=== PATIENT | female | born 1955 | race Caucasian/White ===

== ENCOUNTER 2019-07-15 14:05 | Emergency (ER) | payer MEDICARE ==
[~2019-07-15] VITALS: Ht 162.6 cm; Wt 68.0 kg
[~2019-07-15 14:05] MED LIST: Cyclobenzaprine5 MG PO; DICL25ER PO; GABA100; HYDACE5 PO; IBUP600 PO; Keflex500 MG PO; NAPR220 PO; NAPR500 PO; OXYACE5T PO; Zofran Odt8 MG SL
== END 2019-07-15 16:40 | disposition left against medical advice (07) ==
LOC: ER 14:05
DX: S40.022A Contusion of left upper arm, initial encounter (principal); S40.021A Contusion of right upper arm, initial encounter; R07.9 Chest pain, unspecified; M54.5 Low back pain; M25.531 Pain in right wrist; Y04.8XXA Assault by other bodily force, initial encounter; Z79.899 Other long term (current) drug therapy; F17.210 Nicotine dependence, cigarettes, uncomplicated
CPT/HCPCS: 71046; 73110; 99284-25

== ENCOUNTER 2019-07-18 23:21 | Emergency (ER) | payer MEDICARE ==
[~2019-07-18] VITALS: Ht 162.6 cm; Wt 68.0 kg
[2019-07-19 02:23] LABS: BASOPHILS ABSOLUTE AUTO 0.04 K/mm3 (0.00-0.23); BASOPHILS PERCENT AUTO 1 % (0-2); EOSINOPHILS ABSOLUTE AUTO 0.25 K/mm3 (0.00-0.68); EOSINOPHILS PERCENT AUTO 4 % (0-6); Hematocrit 37.8 % (33.0-51.0); Hemoglobin 12.2 g/dL (11.5-16.0); IMMATURE GRAN ABSOLUTE AUTO 0.02 K/mm3 (0.00-0.10); IMMATURE GRAN PERCENT AUTO 0 % (0-1); LYMPHOCYTES ABSOLUTE AUTO 2.12 K/mm3 (0.84-5.20); LYMPHOCYTES PERCENT AUTO 32 % (21-46); MONOCYTES ABSOLUTE AUTO 0.74 K/mm3 (0.16-1.47); MONOCYTES PERCENT AUTO 11 % (4-13); Mean Corpuscular HGB 27.7 pg (26.0-34.0); Mean Corpuscular HGB Conc 32.3 g/dL (31.5-36.5); Mean Corpuscular Volume 86 fL (80-100); Mean Platelet Volume 9.4 fL (9.1-12.4); NEUTROPHILS PERCENT AUTO 53 % (41-73); Platelet Count 190 K/mm3 (150-400); RDW Coefficient Variation 16.3 % (11.7-14.2); RDW Standard Deviation 51.1 fL (35.1-46.3); Red Blood Cell Count 4.41 M/mm3 (3.80-5.20); White Blood Cell Count 6.67 K/mm3 (4.00-11.30)
[2019-07-19] MEDS ORDERED: Roxicodone5 MG PO (02:35)
[2019-07-19 02:41] LABS: Alanine Aminotransfer (ALT/SGP 30 U/L (12-78); Albumin, Blood 3.4 g/dL (3.4-5.0); Albumin/Globulin Ratio 0.8 (0.8-1.8); Alk Phos 85 U/L (50-136); Anion Gap 6 mmol/L (6-16); Aspartate Aminotrans (AST/SGOT 26 U/L (12-37); Bilirubin, Total 0.4 mg/dL (0.1-1.0); Blood Urea Nitrogen 13 mg/dL (8-24); Bun/Creatinine Ratio 18.4 (12.0-20.0); CO2, Blood 30 mmol/L (21-32); Calcium, Blood 8.9 mg/dL (8.5-10.1); Chloride, Blood 102 mmol/L (98-108); Creatinine, Blood 0.71 mg/dL (0.40-1.00); Globulin, Blood 4.1 g/dL (2.2-4.0); Glomerular Filtration Rate >60 (60-); Glucose, Blood 90 mg/dL (70-99); Potassium, Blood 4.1 mmol/L (3.5-5.5); Sodium, Blood 138 mmol/L (136-145); Total Protein, Blood 7.5 g/dL (6.4-8.2)
== END 2019-07-19 03:00 | disposition home or self-care (01) ==
LOC: ER 23:21
PROVIDERS: Emergency Medicine
DX: S22.20XA Unspecified fracture of sternum, initial encounter for closed fracture (principal); S22.42XD Multiple fractures of ribs, left side, subsequent encounter for fracture with routine healing; S22.41XD Multiple fractures of ribs, right side, subsequent encounter for fracture with routine healing; F17.210 Nicotine dependence, cigarettes, uncomplicated; Y09 Assault by unspecified means
CPT/HCPCS: 36415; 71250; 80053; 85025; 93005; 93010; 99284-25; A9270

== ENCOUNTER 2019-07-25 22:51 | Emergency (ER) | payer MEDICARE ==
[~2019-07-25] VITALS: Ht 162.6 cm; Wt 68.0 kg
[~2019-07-25 22:51] MED LIST changes: +Roxicodone5 MG PO
[2019-07-26] MEDS ORDERED: Roxicodone5 MG PO (03:49)
== END 2019-07-26 04:00 | disposition home or self-care (01) ==
LOC: ER 22:51
DX: S22.42XA Multiple fractures of ribs, left side, initial encounter for closed fracture (principal); S22.22XA Fracture of body of sternum, initial encounter for closed fracture; F17.210 Nicotine dependence, cigarettes, uncomplicated; X58.XXXA Exposure to other specified factors, initial encounter
CPT/HCPCS: 71250; 93005; 93010; 99284-25; A9270

== ENCOUNTER 2019-07-30 13:46 | Observation (INO) | payer MEDICARE ==
[~2019-07-30] VITALS: Ht 162.6 cm; Wt 68.0 kg
[2019-07-30] MEDS ORDERED: METH10 (17:31)
--- NOTE | 2019-07-30 18:00 | NUR ---
pt transferred to unit from ED via wheelchair. pt a/o x 4, vss. pt oriented to room and call light.
[2019-07-30 18:06] LABS: BASOPHILS ABSOLUTE AUTO 0.04 K/mm3 (0.00-0.23); BASOPHILS PERCENT AUTO 1 % (0-2); EOSINOPHILS ABSOLUTE AUTO 0.27 K/mm3 (0.00-0.68); EOSINOPHILS PERCENT AUTO 5 % (0-6); Hematocrit 44.1 % (33.0-51.0); IMMATURE GRAN ABSOLUTE AUTO 0.02 K/mm3 (0.00-0.10); IMMATURE GRAN PERCENT AUTO 0 % (0-1); LYMPHOCYTES ABSOLUTE AUTO 2.87 K/mm3 (0.84-5.20); LYMPHOCYTES PERCENT AUTO 48 % (21-46); MONOCYTES ABSOLUTE AUTO 0.54 K/mm3 (0.16-1.47); MONOCYTES PERCENT AUTO 9 % (4-13); Mean Corpuscular HGB 27.5 pg (26.0-34.0); Mean Corpuscular HGB Conc 31.7 g/dL (31.5-36.5); Mean Corpuscular Volume 87 fL (80-100); Mean Platelet Volume 9.8 fL (9.1-12.4); NEUTROPHILS ABSOLUTE AUTO 2.27 K/mm3 (1.96-9.15); NEUTROPHILS PERCENT AUTO 38 % (41-73); Platelet Count 274 K/mm3 (150-400); RDW Coefficient Variation 15.9 % (11.7-14.2); RDW Standard Deviation 50.4 fL (35.1-46.3); White Blood Cell Count 6.01 K/mm3 (4.00-11.30)
[2019-07-30 18:20] LABS: International Normalized Ratio 0.95; Prothrombin Time Results 10.1 Sec (9.7-11.5)
[2019-07-30 18:24] LABS: Anion Gap 2 mmol/L (6-16); Blood Urea Nitrogen 14 mg/dL (8-24); Bun/Creatinine Ratio 19.9 (12.0-20.0); CO2, Blood 28 mmol/L (21-32); Calcium, Blood 9.5 mg/dL (8.5-10.1); Chloride, Blood 104 mmol/L (98-108); Glomerular Filtration Rate >60 (60-); Glucose, Blood 75 mg/dL (70-99); Potassium, Blood 4.5 mmol/L (3.5-5.5); Sodium, Blood 134 mmol/L (136-145)
[2019-07-30 18:48] LABS: U Amphetamine Screen DETECTED; U Methadone Screen DETECTED; U Methamphetamine Screen DETECTED; U Opiates Screen DETECTED
[2019-07-30 18:49] LABS: U Barbituate Screen Not Detected; U Benzodiazapine Screen Not Detected; U Buprenorphine Screen Not Detected; U Cannabinoids Screen Not Detected; U Cocaine Screen Not Detected; U Oxycodone Screen Not Detected; U Phencyclidine Screen Not Detected; U Propoxyphene Screen Not Detected
--- NOTE | 2019-07-31 04:48 | NUR ---
SHIFT SUMMARY: PT VERY SLEEPY T/O SHIFT. CONTINUOUS BIOX IN PLACE. VSS. PAIN MANAGED WITH FENTANYL FLOORPERSON. PT SBA TO BATHROOM PRN. VOIDING WELL. MELINA REGULAR DIET.
--- NOTE | 2019-07-31 16:48 | NUR ---
SHIFT SUMMARY NO ACUTE CHANGES THIS SHIFT. PAIN MANAGED WITH FENTANYL LAVENDER FARM WORKER. PT DOES GET DROWSY AT TIMES WITH PAIN MEDICATION, BUT AWAKENS EASILY. CONT BIOX IN PLACE WITH SATS >95%. PT ENCOURAGED TO USE I/S AND PT HAS BEEN DEMONSTRATING PROPER USE. PT HAS BEEN ATTEMPTING TO USE THE FENTANYL LAVENDER FARM WORKER LESS BUT REPORTS SHE IS STILL USING IT ABOUT Q30 MINS TO Q45 MINS. PT HAS BEEN INDEP IN ROOM TO THE BATHROOM. MELINA REG DIET. USING KPAD TO RIBS FOR COMFORT PRN. USES CALL LIGHT APPROPRIATELY.
--- NOTE | 2019-08-01 06:20 | NUR ---
PT HAS BEEN STABLE THIS SHIFT, SLEEPING MOST OF THE TIME. PT INDEP IN ROOM AND TO BATHROOM. VOIDING WELL. CONT MUSIC INTERNSHIP USE. PT HAD PERCOCET PRN X2. ENCOURAGING DEEP BREATHS ABLE. KPAD IN USE TO CHEST AND BACK. IV AT TKE. PO INTAKE ADEQUATE. USES CALL LIGHT APPROPRIATELY NEEDED.
[2019-08-01] MEDS ORDERED: Percocet 5-3251 EACH PO (13:07)
--- NOTE | 2019-08-01 14:23 | NUR ---
DISCHARGE NOTE DISCHARGE EDUCATION GIVEN TO PT BY RN. PRINTED EDUCATION AND RX SENT HOME WITH PT. PT WALKING INDEPENDANTLY, VOIDING, AND EATING WELL. PT REPORTS PAIN CONTROLLED WITH MEDICATION AND NO FURTHER QUESTIONS. PT LEFT HOSPITAL WITH FRIEND TO DRIVE HER HOME. IV D/C'D WNL. NO OTHER IV'S IN PLACE.
== END 2019-08-01 14:24 | disposition home or self-care (01) ==
LOC: ER 13:46 → SURS 13:47
PROVIDERS: Emergency Medicine; Nurse Practitioner Acute Care; ADMIT Surgery
DX: S22.43XA Multiple fractures of ribs, bilateral, initial encounter for closed fracture (principal); S22.20XA Unspecified fracture of sternum, initial encounter for closed fracture; F17.210 Nicotine dependence, cigarettes, uncomplicated; Z79.899 Other long term (current) drug therapy; Z86.19 Personal history of other infectious and parasitic diseases; Z86.59 Personal history of other mental and behavioral disorders; Y08.89XA Assault by other specified means, initial encounter
CPT/HCPCS: 36415; 71046; 80048; 84145; 85025; 85610; 94762; 99285-25; G0378; J3010; J7030; J7050

== ENCOUNTER → 2021-05-14 | Outpatient (CLI) | payer MEDICARE ==
[~2021-05-14] MED LIST changes: +METH10; +Percocet 5-3251 EACH PO
[2021-05-14 19:27] LABS: Source, Urine Clean Catch
[2021-05-14 19:57] LABS: Appearance, Urine Cloudy (Clear); Bilirubin, Urine Neg (Neg); Blood, Urine 2+ (Neg); Color, Urine Yellow (P-Yellow); Glucose Qualitative, Urine Neg (Neg); Ketones, Urine Neg (Neg); Leukocyte Esterase, Urine 3+ (Neg); Nitrite, Urine Neg (Neg); Protein, Urine 2+ (Neg); Specific Gravity, Urine 1.015 (1.003-1.022); Urobilinogen, Urine NORM (Normal)
[2021-05-14 20:03] LABS: Bacteria Many /hpf; Red Blood Cells, Urine 0-2 /hpf (0-2); Squamous Epithelial Cells Not Seen /hpf (Few); White Blood Cells, Urine TNTC /hpf (0-5)
== END | disposition home or self-care (01) ==
LOC: LAB SHORT 16:47 → LAB 16:47
PROVIDERS: Student in an Organized Health Care Education/Training Program
DX: R30.0 Dysuria (principal)
CPT/HCPCS: 81001; 87077; 87086; 87186

== ENCOUNTER → 2022-02-20 | Outpatient (CLI) | payer MEDICARE | END | disposition home or self-care (01) | LOC: LAB SHORT 09:05 | DX: R30.0 Dysuria (principal) | CPT/HCPCS: 87077; 87086; 87186 ==

== ENCOUNTER 2023-04-15 06:14 | Day surgery (SDC) | payer MEDICARE, OTHER ==
[~2023-04-15] VITALS: Ht 160 cm; Wt 91.8 kg
[2023-04-15] MEDS ORDERED: METH40 PO (06:36)
[2023-04-15] MEDS ORDERED: LEVSOD25 PO (06:37)
[2023-04-15] MEDS ORDERED: ROSU10TA PO (06:38)
--- NOTE | 2023-04-15 07:21 | NUR ---
04/15/23 0721 Janeth Tipton TETRACAINE DROP PLACED IN RIGHT EYE AT 0707, PLEDGET PLACED IN RIGHT EYE AT 0708. PT TOLERATED WELL. PT HAS CALL LIGHT IN REACH.
[2023-04-15 08:27] VITALS: BP 157/96
--- NOTE | 2023-04-15 08:41 | NUR ---
04/15/23 0841 JAE FAROOQ IV REMOVED AT 0811. CANULA INTACT, PT TOLERATED PROCEDURE WELL.
== END 2023-04-15 08:36 | disposition home or self-care (01) ==
LOC: ORSCSDS 06:14
PROVIDERS: Student in an Organized Health Care Education/Training Program
PROC: 08RJ3JZ Replacement of Right Lens with Synthetic Substitute, Percutaneous Approach (ICD-10-PCS; principal; 2023-04-15 07:30)
DX: H25.13 Age-related nuclear cataract, bilateral (principal); G47.33 Obstructive sleep apnea (adult) (pediatric); Z79.899 Other long term (current) drug therapy; Z87.891 Personal history of nicotine dependence
CPT/HCPCS: 82947; J2001; J2250; J3010; J7040; V2632

== ENCOUNTER 2023-04-22 07:46 | Day surgery (SDC) | payer MEDICARE, OTHER ==
[~2023-04-22] VITALS: Ht 157.5 cm; Wt 198.8 kg
[~2023-04-22 07:46] MED LIST changes: +LEVSOD25 PO; +METH40 PO; +ROSU10TA PO
[2023-04-22] MEDS ORDERED: OXYB5 PO (08:09)
[2023-04-22] MEDS ORDERED: FURO20 PO (08:10)
--- NOTE | 2023-04-22 08:30 | NUR ---
04/22/23 0830 Consuelo Rahman TETRACAADILENE 0809 PLEDGET [id number]
[2023-04-22 09:25] VITALS: BP 136/81
== END 2023-04-22 09:28 | disposition home or self-care (01) ==
LOC: ORSCSDS 07:46
PROVIDERS: Student in an Organized Health Care Education/Training Program
PROC: 08DK3ZZ Extraction of Left Lens, Percutaneous Approach (ICD-10-PCS; principal; 2023-04-22 09:00)
DX: H25.12 Age-related nuclear cataract, left eye (principal); Z96.1 Presence of intraocular lens; H53.003 Unspecified amblyopia, bilateral; G47.33 Obstructive sleep apnea (adult) (pediatric); E66.9 Obesity, unspecified; Z68.36 Body mass index [BMI] 36.0-36.9, adult; E78.5 Hyperlipidemia, unspecified; Z79.899 Other long term (current) drug therapy
CPT/HCPCS: 82947; J2001; J2250; J3010; J7040; V2632

== ENCOUNTER → 2023-05-21 | Outpatient (CLI) | payer MEDICARE, OTHER ==
[~2023-05-21] MED LIST changes: +FURO20 PO; +OXYB5 PO
[2023-05-22 13:42] LABS: Stool Occult Bld Immuno 1 Negative (NEGATIVE)
== END | disposition home or self-care (01) ==
LOC: LAB SHORT 16:00 → LAB 16:00
PROVIDERS: Student in an Organized Health Care Education/Training Program
DX: Z12.11 Encounter for screening for malignant neoplasm of colon (principal)
CPT/HCPCS: G0328

== ENCOUNTER → 2023-06-10 | Outpatient (CLI) | payer MEDICARE, OTHER | END | disposition home or self-care (01) | LOC: LAB SHORT 12:04 → LAB 12:04 | DX: R30.0 Dysuria (principal) | CPT/HCPCS: 87077; 87086; 87186 ==

== ENCOUNTER → 2025-03-17 | Outpatient (CLI) | payer MEDICARE ==
[2025-03-21 11:40] LABS: Stool Occult Bld Immuno 1 Positive (NEGATIVE)
== END ==
LOC: LAB 17:30 → LAB SHORT 17:30
PROVIDERS: Student in an Organized Health Care Education/Training Program
DX: Z12.11 Encounter for screening for malignant neoplasm of colon (principal)
CPT/HCPCS: G0328